=== PATIENT | male | born 1965 | race Caucasian/White ===

== ENCOUNTER 2022-05-29 15:45 | Emergency (ER) | payer OTHER, SELFPAY ==
[2022-05-29] VITALS (13 sets, daily range): BP systolic 121–141; BP diastolic 72–99; PULSE 55–64; RESP 12–24; TEMP 36.1–36.8; O2SAT 97–100; BMI 32.5
--- NOTE | 2022-05-29 16:03 | DI.RAD.S_ITS ---
PROCEDURE: XR CHEST 1V INDICATIONS: chest pain TECHNIQUE: One view of the chest was acquired. COMPARISON: None. FINDINGS: Surgical changes and devices: None. Lungs and pleura: Lungs are clear. No pleural effusions or pneumothorax. Mediastinum: Mediastinal contours appear normal. Heart size is normal. Bones and chest wall: No suspicious bony lesions. Overlying soft tissues appear unremarkable. IMPRESSION: No acute radiographic abnormality. Dictated by: Devonte Colby M.D. on 05/29/2022 at 16:51 Approved by: Devonte Colby M.D. on 05/29/2022 at 16:51
[2022-05-29 16:28] LABS: Add Manual Diff / Slide Review NO; Basophils Absolute Auto 0 /uL (0-100); Basophils Percent Auto 1.2 % (0-2); Eosinophils Absolute Auto 100 /uL (0-450); Eosinophils Percent Auto 2.4 % (2-4); Hematocrit 38.9 % (41-53); Hemoglobin 13.7 g/dL (13.5-17.5); Lymphocytes Absolute Auto 1300 /uL (1100-4500); Lymphocytes Percent Auto 32.8 % (25-40); Mean Corpuscular HGB Conc 35.1 % (30-36); Mean Corpuscular Hemoglobin 32.4 PG (26-34); Mean Corpuscular Volume 92.3 fL (80-100); Monocytes Absolute Auto 500 /uL (0-900); Monocytes Percent Auto 11.5 % (3-14); Neutrophils Absolute Auto 2100 /uL (1500-7000); Neutrophils Percent Auto 52.1 % (50-75); Platelet Count 201 X10^3/uL (150-400); Red Blood Cell Count 4.21 X10^6/uL (4.5-5.9); Red Cell Distribution Width 13.8 % (11.6-14.8); White Blood Cell Count 3.9 X10^3/uL (4.5-11.0)
[2022-05-29 16:30] LABS: PTT Partial Thromboplastin Tim 28 SECONDS (26.4-36.2)
[2022-05-29 16:31] LABS: Alanine Aminotransferase 30 IU/L (<50); Albumin 4.6 g/dL (3.5-5.0); Albumin Globulin Ratio 1.4 (1.0-2.8); Alkaline Phosphatase 37 U/L (38-126); Aspartate Aminotransferase 35 IU/L (17-59); BUN Creatinine Ratio 14.9 (6-22); Bilirubin Total 0.6 mg/dL (0.2-1.3); Blood Urea Nitrogen 15 mg/dL (9-20); Carbon Dioxide 25 mmol/L (22-32); Chloride 105 mmol/L (98-107); Creatine Kinase 121 U/L (55-170); Estimated Glomerular Filt Rate > 60 mL/min (>60); Globulin 3.2 g/dL (1.7-4.1); Glucose 90 mg/dL (70-100); Lipase 52 U/L (23-300); Potassium 4.7 mmol/L (3.4-5.1); Sodium 139 mmol/L (137-145); Total Protein 7.8 g/dL (6.3-8.2)
[2022-05-29 16:37] LABS: HEMOLYSIS 99 (0-50)
[2022-05-29 16:42] LABS: Troponin I < 0.012 ng/mL (0.01-0.034)
[2022-05-29 16:46] LABS: Creatine Kinase MB 1.16 ng/mL (<2.37)
--- NOTE | 2022-05-29 18:42 | ED.CHESTPAIN ---
HPI - Chest Pain General Chief Complaint: Chest Pain Stated Complaint: SOB, Mild chest pains Time Seen by Provider: 05/29/22 18:09 Source: patient Mode of arrival: Ambulatory Limitations: no limitations History of Present Illness HPI narrative: 57-year-old gentle with no significant medical issues taking no prescription medications recently established with a new provider at the [facility] but has not yet been seen presents after going to the would be walking clinic with complaints of dyspnea awaking him from sleep the last 3 nights getting better once he gets up and walks around. He states that he had some upper respiratory symptoms recently. He was diagnosed with COVID in March of this year. Over last 48 hours he has had some mild sweats, general malaise, his right nostril is plugged he did a COVID test yesterday that was negative. He states that he recently started a new exercise program has been increasing both weights and cardiovascular activity and has been doing very well with this. He has no DVT/PE risk factors, no lower extremity swelling. He notes that his right Achilles tendon has been bothering when he does have appointment with orthopedic surgeon to discuss that in the future. He denies chest pain, overt cough, abdominal pain, vomiting, diarrhea, constipation. Review of Systems Review of Systems Narrative: Remainder of complete review of systems is otherwise unremarkable except for that included in the HPI. Patient History Social History Smoking Status: Current every day smoker Smoking Status: Current every day smoker tobacco type: cigars alcohol intake frequency: 0-2 drinks per day Substance Use Type: does not use Exam Initial Vital Signs Initial Vital Signs: Vital Signs Temperature 96.9 F L 05/29/22 15:47 Pulse Rate 63 05/29/22 15:47 Respiratory Rate 18 05/29/22 15:47 Blood Pressure 137/72 05/29/22 15:47 Pulse Oximetry 99 05/29/22 15:47 Oxygen Delivery Method 05/29/22 15:47 General: Healthy appearing, in no acute distress. Able to give a complete and coherent history. Well-nourished well-developed HEENT: Moist mucous membranes, normal sclera with reactive pupils, Neck: No JVD, supple Respiratory: Lungs are clear to auscultation, no wheezing no rales no rhonchi. Full and symmetrical air movement Cardiac: Regular rate and rhythm no murmurs no bruits Abdomen: Soft, nontender, good bowel tones, no flank pain Skin: Warm and dry, no rashes Neurologic: Grossly neurologically intact with no obvious asymmetries or abnormalities Extremities: No trauma, well perfused, no lower extremity edema Psych: Cooperative, appropriate insight and affect Course Orders Ordered: ED Orders 05/29/22 16:00 Complete Blood Count AUTO DIFF Stat Comprehensive Metabolic Panel Stat Lipase Stat Magnesium Stat Partial Thromboplastin Time Stat Prothrombin Time INR Stat Troponin & CK Cardiac Panel Stat 05/29/22 16:03 XR chest 1V Stat 05/29/22 16:10 EKG-12 Lead Stat Vital Signs Vital signs: Vital Signs - 8 hr 05/29/22 15:47 05/29/22 15:55 05/29/22 15:56 Temperature 96.9 F L Pulse Rate 63 64 64 Respiratory Rate 18 15 Blood Pressure 137/72 Pulse Oximetry 99 98 97 Oxygen Delivery Method Room Air 05/29/22 15:56 05/29/22 16:00 05/29/22 16:01 Temperature Pulse Rate 56 L Respiratory Rate 15 12 Blood Pressure 140/79 Pulse Oximetry 98 98 Oxygen Delivery Method 05/29/22 16:30 05/29/22 16:30 05/29/22 16:44 Temperature 98.2 F Pulse Rate 55 L 57 L Respiratory Rate Blood Pressure 121/79 127/86 Pulse Oximetry 98 Oxygen Delivery Method 05/29/22 16:44 05/29/22 16:44 05/29/22 17:00 Temperature Pulse Rate 58 L Respiratory Rate 19 Blood Pressure 127/86 123/80 Pulse Oximetry 99 Oxygen Delivery Method 05/29/22 17:00 Temperature Pulse Rate 60 Respiratory Rate 12 Blood Pressure Pulse Oximetry 100 Oxygen Delivery Method MDM - Chest Pain Lab Data Result diagrams: 05/29/22 16:00 05/29/22 16:00 Labs: Lab Results 05/29/22 05/29/22 05/29/22 Range/Units 16:00 16:00 16:00 WBC 3.9 L (4.5-11.0) X10^3/uL RBC 4.21 L (4.5-5.9) X10^6/uL Hgb 13.7 (13.5-17.5) g/dL Hct 38.9 L (41-53) % MCV 92.3 (80-100) fL MCH 32.4 (26-34) PG MCHC 35.1 (30-36) % RDW 13.8 (11.6-14.8) % Plt Count 201 (150-400) X10^3/uL Neut % (Auto) 52.1 (50-75) % Lymph % (Auto) 32.8 (25-40) % Charlton % (Auto) 11.5 (3-14) % Eos % (Auto) 2.4 (2-4) % Baso % (Auto) 1.2 (0-2) % Neut # (Auto) 2100 (7406-4885) /uL Lymph # (Auto) 1300 (2344-3937) /uL Charlton # (Auto) 500 (0-900) /uL Eos # (Auto) 100 (0-450) /uL Baso # (Auto) 0 (0-100) /uL PT 12.0 (10.1-12.7) SECONDS INR 1.0 (0.9-1.3) APTT 28 (26.4-36.2) SECONDS Sodium 139 (137-145) mmol/L Potassium 4.7 (3.4-5.1) mmol/L Chloride 105 (98-107) mmol/L Carbon Dioxide 25 (22-32) mmol/L BUN 15 (9-20) mg/dL Creatinine 1.01 (0.66-1.25) mg/dL Estimated GFR > 60 (>60) mL/min BUN/Creatinine Ratio 14.9 (6-22) Glucose 90 (70-100) mg/dL Calcium 9.0 (8.4-10.2) mg/dL Magnesium 2.0 (1.6-2.3) mg/dL Total Bilirubin 0.6 (0.2-1.3) mg/dL AST 35 (17-59) IU/L ALT 30 (<50) IU/L Alkaline Phosphatase 37 L (38-126) U/L Total Creatine Kinase 121 (55-170) U/L CK-MB (CK-2) 1.16 (<2.37) ng/mL CK-MB (CK-2) Rel Index 1.0 L (1.5-5.0) % Troponin I < 0.012 (0.01-0.034) ng/mL Total Protein 7.8 (6.3-8.2) g/dL Albumin 4.6 (3.5-5.0) g/dL Globulin 3.2 (1.7-4.1) g/dL Albumin/Globulin Ratio 1.4 (1.0-2.8) Lipase 52 (23-300) U/L Imaging Data Chest x-ray: Radiologist's Impression: FINDINGS:? ? Surgical changes and devices:? None.? ? Lungs and pleura:? Lungs are clear.? No pleural effusions or pneumothorax.? ? Mediastinum:? Mediastinal contours appear normal.? Heart size is normal.? ? Bones and chest wall:? No suspicious bony lesions.? Overlying soft tissues appear unremarkable.? ? IMPRESSION:? No acute radiographic abnormality. ? ? Dictated by: Devonte Colby M.D. on 05/29/2022 at 16:51 ? ? ECG Data Interpretation: Sinus rhythm at a rate of 61 Normal intervals, normal axis no acute ischemic changes EKG is compared to 1 done earlier today at the walk-in clinic and is unremarkable MDM Narrative Medical decision making narrative: 57-year-old gentleman with 3 evenings of mild nocturnal dyspnea. Mild URI symptoms with sweats and general malaise negative COVID testing. No evidence of acute coronary syndrome, no congestive heart failure on clinical exam or chest x-ray. No evidence of rhythm abnormalities. At this point I suspect that the nocturnal dyspnea is most likely related to the minor nasal congestion and upper respiratory infection rather than any cardiac abnormality. Did caution him that if he has recurrent symptoms he does need to be further evaluated. If his nocturnal dyspnea has not improved within the week I suggested that the next step would be an outpatient echocardiogram to be discussed with his primary care physician. Expresses understanding, questions are answered he is safe for home discharge Discharge Plan Departure Patient Disposition: Home Clinical Impression: Nocturnal dyspnea, Acute upper respiratory infection Instructions: DI for Shortness of Breath Activity Restrictions/Additional Instructions: Thank you for coming in today The waking up at night because of shortness of breath for 3 nights can be a sign of congestive heart failure. On your evaluation today, there is no clinical evidence on your exam or signs of congestive heart failure with your chest x-ray. Your EKG is absolutely normal suggesting no acute heart abnormalities. Your blood work does not suggest severe infection, kidney problems liver problems or heart attack or acute heart attack like syndrome. With a mild no stuffiness the 2-3 days of symptoms the general malaise and low-grade sweats, I suspect your developing a mild upper respiratory infection. If you find that you are getting worse with the appropriate to return to the emergency department. If you find that symptoms are simply continuing, I would encourage you to follow-up with her primary care doctor to discuss them. The next step in the outpatient workup might be a echocardiogram, an ultrasound picture of your heart.
== END 2022-05-29 19:12 | disposition home or self-care (01) ==
PROVIDERS: Emergency Medicine; Emergency Provider Emergency Medicine
DX: J06.9 Acute upper respiratory infection, unspecified (principal); R06.00 Dyspnea, unspecified; R07.9 Chest pain, unspecified; Z86.16 Personal history of COVID-19
CPT/HCPCS: 36415; 71045; 80053; 82550; 82553; 83690; 83735; 84484; 85025; 85610; 85730; 93005; 93010; 99283; 99284